=== PATIENT | male | born 2000 | race African-American/Black ===

== ENCOUNTER 2021-05-21 22:00 | Emergency (ER) | payer BC, SELFPAY ==
[2021-05-21 22:24] VITALS: BP 128/71; PULSE 64; RESP 16; TEMP 36.5; O2SAT 99
--- NOTE | 2021-05-21 23:19 | ED.WOUNDLAC ---
HPI - Wound/Laceration General Chief Complaint: Wound/Laceration Stated Complaint: lip lac Time Seen by Provider: 05/21/21 22:54 Source: patient Mode of arrival: ambulatory Limitations: no limitations History of Present Illness HPI narrative: Patient is a 21-year-old male complaining of left lip laceration after he was accidentally hit in the face while playing basketball. Patient denies any head, neck, chest, back or any extremity pain/injury. Patient denies any loss of consciousness. Related Data Allergies Allergy/AdvReac Type Severity Reaction Status Date / Time No Known Allergies Allergy Verified 05/21/21 22:43 Review of Systems Review of Systems: All systems reviewed & are unremarkable except as noted in HPI and below Constitutional: Constitutional: Reports as per HPI PMFSH Comments Past medical history: None Family history: None Social history: Non-smoker no EtOH or drug use Exam Const: General: cooperative, healthy appearing, comfortable, no acute distress, well developed, alert and awake; No confusion Orientation/consciousness: oriented to person, oriented to place, oriented to time, patient oriented x3 and No confusion Limitations: no limitations HENMT: Head: normal to inspection, normocephalic and atraumatic Ears: hearing grossly normal bilaterally, TM normal on the right and TM normal on the left General nose exam: Normal external nose present, Normal nares present and No nasal discharge present Face and sinus: normal facial exam Mouth: Yes Normal oral and palatal mucosa present, Yes tongue normal and Yes oropharynx normal Throat: posterior oropharynx normal, tonsils normal and uvula midline Other: 2 cm laceration left upper lip Eyes: General: appearance normal, both eyes and all related structures Pupils: Equal, round and reactive pupils present EOM: EOMs intact bilaterally Neck: Neck: normal visual inspection, full ROM, no lymphadenopathy and no meningeal signs Chest: Chest palpation & inspection: normal inspection of the chest Resp: Effort & Inspection: normal respiratory effort, able to speak in complete sentences, no respiratory distress and not tachypneic Auscultation: clear to auscultation bilaterally, no crackles, no rales, no rhonchi and no wheezes Cardio: Rate: regular rate Rhythm: regular rhythm GI: Inspection: normal to inspection GI Palp: No abdominal tenderness, Yes Soft to palpation, No Tenderness to palpation present (GI), No Guarding due to palpation present (GI), No Rigid due to palpation and No Rebound tenderness present Auscultation: normal bowel sounds : General: Yes no CVA tenderness Back/Spine/Pelvis: Back: no CVA tenderness Skin: General skin exam: normal color, no rashes or lesions noted, elasticity normal and turgor normal Neuro: General: oriented to person, oriented to place, oriented to time, patient oriented x3, tone normal, moves all extremities, Normal light touch and pain sensation, no meningeal signs, no focal motor deficits, CN's II-XI intact bilaterally and No confusion Cranial nerves: Yes Equal, round and reactive pupils present Speech: No Abnormal speech present Sensory Exam: No Sensory deficit (Neuro) Extrem: General: normal to inspection, full ROM and capillary refill normal Psych: Appearance: grossly normal and well kempt Mental Status: mental status grossly normal Speech and movement: Normal speech and movement present Affect: normal affect Attitude: cooperative Thought process: Normal thought process present Thought content: Yes Normal thought content present Insight: Good insight present (Psych) Judgement: Good judgement present (Psych) Course Vital Signs Vital signs: Vital Signs Temperature 36.5 C 05/21/21 22:24 Pulse Rate 64 05/21/21 22:24 Respiratory Rate 16 05/21/21 22:24 Blood Pressure 128/71 05/21/21 22:24 Pulse Oximetry 99 05/21/21 22:24 Temperature 36.5 C 05/21/21 22:24 Pulse Rate 64 05/21/21 22:24
[2021-05-22] MEDS: CEPHALEXIN 500 MG CAPSULE PO (00:31)
[2021-05-22 00:55] VITALS: BP 122/71; PULSE 60; RESP 18; O2SAT 100
== END 2021-05-22 00:57 | disposition home or self-care (01) ==
PROVIDERS: Emergency Provider Emergency Medicine
DX: S01.511A Laceration without foreign body of lip, initial encounter (principal); W51.XXXA Accidental striking against or bumped into by another person, initial encounter; Y93.67 Activity, basketball
CPT/HCPCS: 12011; 99283; A9270